=== PATIENT | male | born 1960 | race Caucasian/White ===

== ENCOUNTER → 2018-07-09 12:21 | Outpatient (CLI) | payer MEDICARE, SELFPAY ==
--- NOTE | 2018-07-09 12:46 | MR_ITS ---
MR lumbar spine wo/w con, MR 3-d myelogram/MRCP HISTORY: PT states spinal stenosis and low back pain X years. Gotten worse last month. Bilateral Hip pain and bilateral feet numbness. ITS.REASON: LBP RADIATING TO BOTH LEGS, DDD ORDERING PHYSICIAN: Arvin Pinedo MD PATIENT AGE: 57 years Comparison: MRI 10/19/14. X-RAY 10/13/14. TECHNIQUE: Standard multiplanar multiecho sequences are performed without contrast. 3-D MIP and myelographic images are also rendered and reviewed FINDINGS: There is normal alignment. Spinal cord ends at L1 level. T11-T12: Degenerative disc disease with mild bulging disc with mild bilateral lateral recess and foraminal narrowing. T12-L1: Unremarkable. L1-L2: Unremarkable. L2-L3: Degenerative disc disease with bulging disc. There is a small central disc herniation slightly eccentric toward the left causing mild indentation upon the thecal sac and mild impingement of the left L3 nerve root. This has developed since the previous exam. There is left lateral recess narrowing. There is facet and ligamentum flavum hypertrophy with bilateral lateral recess narrowing greater on the left along with bilateral foraminal narrowing also greater on the left. Type I endplate changes are present at this level posteriorly L3-L4: Degenerative disc disease with bulging disc along with endplate and facet and ligamentum flavum hypertrophy. There is moderate to severe bilateral foraminal narrowing greater on the left. The lateral recess narrowing is greater on the right. These findings are similar when compared to the previous exam. There are type II endplate changes L4-L5: Degenerative disc disease with bulging disc along with minimal central disc protrusion. There is mild left-sided foraminal narrowing. L5-S1: Severe degenerative disc disease with bulging disc and endplate hypertrophic change along with facet hypertrophy with moderate to severe bilateral foraminal narrowing. The disc bulge has improved compared to the previous exam. No bony canal stenosis. There are bilateral renal cysts. IMPRESSION: 1. Multilevel lumbar spondylosis with degenerative disc disease along with facet and ligamentum flavum hypertrophy and bulging disc with bilateral lateral recess and foraminal narrowing. Please see above for detailed description at each level. 2. L2-L3: Degenerative disc disease with bulging disc. There is a small central disc herniation slightly eccentric toward the left causing mild indentation upon the thecal sac and mild impingement of the left L3 nerve root. This has developed since the previous exam. There is left lateral recess narrowing. There is facet and ligamentum flavum hypertrophy with bilateral lateral recess narrowing greater on the left along with bilateral foraminal narrowing also greater on the left. Type I endplate changes are present at this level posteriorly 3. L3-L4: Degenerative disc disease with bulging disc along with endplate and facet and ligamentum flavum hypertrophy. There is moderate to severe bilateral foraminal narrowing greater on the left. The lateral recess narrowing is greater on the right. These findings are similar when compared to the previous exam. There are type II endplate changes
[2018-07-09 12:54] LABS: Blood Urea Nitrogen 14 mg/dL (7-18); Creatinine,Serum 0.95 mg/dL (0.70-1.30); Estimated Glomerular Filt Rate 81 ml/min (>60); GFR (African American) 99 ML/MIN (>60)
== END ==
PROVIDERS: Visit Provider Family Medicine
DX: M54.5 Low back pain (principal); M51.36 Other intervertebral disc degeneration, lumbar region; M99.83 Other biomechanical lesions of lumbar region; M48.00 Spinal stenosis, site unspecified
CPT/HCPCS: 36415; 72158; 76376; 82565; 84520; A9576

== ENCOUNTER 2019-07-27 13:30 | Emergency (ER) | payer MEDICARE, SELFPAY ==
--- NOTE | 2019-07-27 13:30 | ECG_ITS ---
APPROVED REPORT Exam: Resting ECG HR:78 bpm ECG Measurements Heart Rate 78 AXES MI 154 P 46 QRSd 96 QRS 71 QT 346 T 34 QTc 394 <Conclusion> Sinus rhythm with premature atrial complexes Incomplete right bundle branch block Borderline ECG Electronically signed by : Basim Billingsley, 07/28/2019 08:57:02
[2019-07-27 13:35] VITALS: BP 164/87; PULSE 79; RESP 20; TEMP 36.7; O2SAT 88; BMI 47.6
[2019-07-27 13:36] VITALS: BMI 47.6
--- NOTE | 2019-07-27 13:36 | XR_ITS ---
PROCEDURE: XR CHEST 2V CLINICAL HISTORY: chest pain Chest pain, cough, shortness of breath, smoker COMPARISON: ABDPELW/WO CT ABD PELVIS W/WO CONTRAST from 10/08/2014 FINDINGS: There is mild cardiomegaly without failure. There are atelectatic changes in the right lower lobe with eventration involving the right hemidiaphragm. Patchy density is present in the left lung base probably due to summation artifact and pericardial fat pad. Upper lobes are clear. No acute bony abnormalities. IMPRESSION: Right lower lobe atelectasis Dictated by: Gio Poole MD 07/27/2019 15:04 Electronically signed by Gio Poole MD in [place] 07/27/2019 15:04
[2019-07-27 13:59] LABS: Anion Gap 10.6 mEq/L (5-15); Blood Urea Nitrogen 17 mg/dl (9-20); Calcium 9.5 mg/dl (8.4-10.2); Carbon Dioxide 32 mmol/L (22.0-30.0); Chloride 94 mmol/L (98-107); Creatinine Clearance Estimated 90 mL/min (50-200); Estimated Glomerular Filt Rate 99 ml/min (>60); GFR (African American) 120 ML/MIN (>60); Glucose 116 mg/dl (74-100); Potassium 4.6 mmoL/L (3.5-5.1); Sodium 132 mmol/L (136-145)
[2019-07-27 14:00] LABS: Strep Scrn Group A (Rapid) Negative (Negative)
[2019-07-27 14:08] LABS: Basophils # 0.1 K/mm3 (0-0.2); Basophils % 0.9 % (0.1-2.0); Eosinophils % 0.5 % (0.1-12.0); Hematocrit 49.2 % (42.0-52.0); Lymphocytes % 22.6 % (10-50); Mean Corpuscular HGB Conc 32.5 g/dL (31.8-35.4); Mean Corpuscular Hemoglobin 31.9 pg (27.0-31.2); Mean Corpuscular Volume 98.2 fl (80-94); Mean Platelet Volume 7.8 fl (7.4-10.4); Monocytes # 0.8 K/mm3 (0.1-1.0); Platelet Count 284 K/mm3 (142-424); Red Blood Count 5.01 M/mm3 (4.60-6.20); White Blood Count 8.9 K/mm3 (4.8-10.8)
[2019-07-27 14:13] LABS: Troponin I < 0.01 ng/ml (0.00-0.034)
--- NOTE | 2019-07-27 14:19 | HMH.EDCP ---
ED Disposition Clinical Impression: Chest pain, Atypical chest pain, Costochondral chest pain Disposition: Home, Self-Care Condition on Discharge: Good Instructions: DI for Atypical Chest Pain Prescriptions: Nabumetone 750 mg PO 20 #10 tab Transmission Status: Pending to [facility][id number] Referrals: Arvin Pinedo MD [Primary Care Provider] - - Critical Care Critical Care Time: No Attestation: On 07/27/19, the high probability of a clinically significant, sudden or life threatening deterioration of the following system(s) required my full and direct attention, intervention and personal management. The time I documented below is in addition to time spent performing reported procedures but includes the following listed in this critical care notation. Medical Decision Making - Medical Records Medical records reviewed: Yes: I reviewed the patient's medical records. - Guillaume Inquiry Pt receiving controlled substance: No Vital Signs: 07/27/19 13:35 07/27/19 15:35 07/27/19 16:55 Temperature 98.0 F Temperature Source Oral Pulse Rate [Right Radial] 79 74 85 Respiratory Rate 20 24 20 Blood Pressure [Right Arm] 164/87 H 140/73 151/77 H Blood Pressure Mean [Right Arm] 112 95 101 Blood Pressure Source [Right Arm] Automatic Cuff Automatic Cuff Automatic Cuff Blood Pressure Position [Right Arm] Sitting Sitting Sitting 02 Sat by Pulse Oximetry 88 L 92 L 100 Oxygen Delivery Method Room Air Room Air Room Air - Lab Data Lab results reviewed: Yes: I reviewed the patient's lab results. Lab Results 07/27/19 13:40: WBC 8.9, RBC 5.01, Hgb 16.0, Hct 49.2, MCV 98.2 H, MCH 31.9 H, MCHC 32.5, RDW 13.0, Plt Count 284, MPV 7.8, Neut % (Auto) 67.0, Lymph % (Auto) 22.6, [place] % (Auto) 9.0, Eos % (Auto) 0.5, Baso % (Auto) 0.9, Neut # (Auto) 6.0, Lymph # (Auto) 2.0, [place] # (Auto) 0.8, Eos # (Auto) 0.0, Baso # (Auto) 0.1 07/27/19 13:40: Sodium 132 L, Potassium 4.6, Chloride 94 L, Carbon Dioxide 32 H, Anion Gap 10.6, BUN 17, Creatinine 0.80, Estimated Creat Clear 90, Estimated GFR 99, Est GFR ( Amer) 120, Glucose 116 H, Calcium 9.5, Troponin I < 0.01 07/27/19 13:45: Influenza Type A Ag Negative, Influenza Type B Ag Negative 07/27/19 13:45: Group A Strep Rapid Negative 07/27/19 16:49: Troponin I < 0.01 Result diagrams: 07/27/19 13:40 07/27/19 13:40 Orders (Tests/Meds): ED MEDICATIONS Discontinued Medications Generic Name Dose Route Start Last Admin Trade Name Adamq PRN Reason Stop Dose Admin Aspirin 324 mg 07/27/19 13:37 07/27/19 13:55 Aspirin 81mg Chewable Tablet PO 07/27/19 13:38 324 mg ONCE ONE Administration Methylprednisolone Sodium Succinate 125 mg 07/27/19 13:54 07/27/19 13:55 Solu-Medrol 125mg/2ml Vial IM 07/27/19 13:55 Not Given ONCE ONE Methylprednisolone Sodium Succinate 125 mg 07/27/19 13:56 07/27/19 13:56 Solu-Medrol 125mg/2ml Vial IV 07/27/19 13:57 125 mg ONCE ONE Administration ORDERS Category Date Time Status Troponin I Q3H Lab 07/27/19 19:45 Ordered Strep Screen Confirmation Stat Micro 07/27/19 13:45 Received - ECG Data Tracing #1 I reviewed this ECG and interpreted as documented below: Normal Sinus Rhythm: Yes Arrhythmias present: junctional escape rhythm Medical Decision Narrative: Patient second troponin drawn here in the emergency department is normal. I also spoke to Dr. Pinedo about this patient he recommended the patient follow-up with him in the office in the next week or so and to schedule an outpatient stress test. Chest Pain HPI - General Chief Complaint: Chest Pain Stated Complaint: chest pain Time Seen by Provider: 07/27/19 14:20 Mode of Arrival: Ambulatory Source of Information: Patient Limitations: No Limitations Description of Symptoms (Recalled from ER Triage Doc. by RN): pt c/o L sided cp since yesterday, pt reports loose cough, non-productive in nature, pt also c/o SOA that began upon waking up yesterday a
--- NOTE | 2019-07-27 14:53 | PC.NURSE ---
attempted to call dr means, no answer
--- NOTE | 2019-07-27 15:02 | PC.NURSE ---
dr clary jarquin
--- NOTE | 2019-07-27 15:15 | PC.NURSE ---
VIKY JAFFE spoke with Dr. Pinedo updating pt on POC at this time
[2019-07-27 15:35] VITALS: BP 140/73; PULSE 74; RESP 24; O2SAT 92
--- NOTE | 2019-07-27 16:50 | PC.NURSE ---
Lab at bedside. drawing 2nd troponin
[2019-07-27 16:55] VITALS: BP 151/77; PULSE 85; RESP 20; O2SAT 100
[2019-07-27 17:27] LABS: Troponin I < 0.01 ng/ml (0.00-0.034)
[2019-07-27 17:55] VITALS: BP 151/77; PULSE 85; RESP 20; TEMP 36.7; O2SAT 100
[2019-07-27 18:08] VITALS: BP 138/88; PULSE 72; RESP 16; TEMP 36.6; O2SAT 98
== END 2019-07-27 17:55 | disposition home or self-care (01) ==
PROVIDERS: Emergency Provider Family Medicine; PCP Family Medicine
DX: R07.89 Other chest pain (principal); R03.0 Elevated blood-pressure reading, without diagnosis of hypertension; R73.9 Hyperglycemia, unspecified; E66.9 Obesity, unspecified; Z68.42 Body mass index [BMI] 45.0-49.9, adult
CPT/HCPCS: 36415; 71046; 80048; 84484; 85025; 87275; 87276; 87430; 93005; 96374; 99283; 99284

== ENCOUNTER 2019-09-06 18:29 | Inpatient (IN) | payer MEDICARE, SELFPAY ==
[2019-09-06] VITALS (10 sets, daily range): BP systolic 97–124; BP diastolic 46–90; PULSE 81–94; RESP 14–19; TEMP 36.5–37; O2SAT 87–95; BMI 34.9; BMI 47.5
--- NOTE | 2019-09-06 18:43 | ECG_ITS ---
APPROVED REPORT Exam: Resting ECG HR:84 bpm ECG Measurements Heart Rate 84 AXES WI 182 P 73 QRSd 108 QRS 79 QT 342 T 45 QTc 404 <Conclusion> Normal sinus rhythm Low voltage QRS Incomplete right bundle branch block Borderline ECG Electronically signed by : Arvin Lehman, 09/09/2019 17:10:25
--- NOTE | 2019-09-06 18:43 | XR_ITS ---
PROCEDURE: XR CHEST PORTABLE CLINICAL HISTORY: weakness, both legs numb Weakness COMPARISON: XR CHEST 2V from 07/27/2019 CT CHEST WO CON from 09/06/2019 FINDINGS: Mild cardiomegaly with mild prominence of the mediastinum which may be in part due to the portable AP supine technique and mediastinal lipomatosis. There is slightly elevated right hemidiaphragm with lucency under the right hemidiaphragm possibly from undulation of the diaphragm and subdiaphragmatic adipose tissue.. The lungs are clear without infiltrates, suspicious nodules, or pleural effusions. No acute bony abnormalities. IMPRESSION: No definite acute finding. Mild cardiomegaly Dictated by: Gio Poole MD 09/06/2019 20:48 Electronically signed by Gio Poole MD in [place] 09/06/2019 20:48
--- NOTE | 2019-09-06 18:48 | CT_ITS ---
PROCEDURE: CT HEAD/BRAIN WO CON CLINICAL INDICATION: NUMBNESS TO LEGS Stroke protocol, generalized weakness and decreasing level of consciousness COMPARISON: No exams were available for comparison TECHNIQUE: Axial images obtained. All CT scans at the facility use one or more dose reduction, viz: automated exposure control, ma/kV adjustment per patient size (including targeted exams where dose is matched to indication, i.e. head), or iterative reconstruction technique. FINDINGS: No midline shift, mass effect, intracranial hemorrhage, hydrocephalus, or extra-axial fluid collection is evident. The calvarium has an unremarkable appearance. No mastoid effusion. No sinus air-fluid level. IMPRESSION: No acute intracranial finding Dictated by: Gio Poole MD 09/07/2019 10:39 Electronically signed by Gio Poole MD in [place] 09/07/2019 10:39
--- NOTE | 2019-09-06 18:52 | PC.NURSE ---
PT IS IN CT
[2019-09-06 18:56] LABS: Basophils % 0.1 % (0.1-2.0); Eosinophils # 0.1 K/mm3 (0.0-0.4); Eosinophils % 0.3 % (0.1-12.0); Hematocrit 49.9 % (42.0-52.0); Hemoglobin 16.3 g/dL (14.1-18.0); Lymphocytes # 1.2 K/mm3 (0.7-4.5); Lymphocytes % 5.5 % (10-50); Mean Corpuscular HGB Conc 32.6 g/dL (31.8-35.4); Mean Corpuscular Hemoglobin 33.2 pg (27.0-31.2); Mean Corpuscular Volume 101.7 fl (80-94); Mean Platelet Volume 8.2 fl (7.4-10.4); Monocytes # 1.5 K/mm3 (0.1-1.0); Monocytes % 7.2 % (1.7-9.3); Neutrophils # 18.2 K/mm3 (1.8-7.8); Neutrophils % 86.8 % (37.0-80.0); Platelet Count 307 K/mm3 (142-424); Red Blood Count 4.91 M/mm3 (4.60-6.20); Red Cell Distribution Width 13.3 % (11.5-17.5)
[2019-09-06 18:59] LABS: White Blood Count 20.9 K/mm3 (4.8-10.8)
[2019-09-06 19:01] LABS: MANUAL DIFFERENTIAL MANUAL DIFFERENTIAL (MANUAL DIFF)
[2019-09-06 19:03] LABS: Blood Urea Nitrogen 51 mg/dl (9-20); Calcium 9.3 mg/dl (8.4-10.2); Carbon Dioxide 24 mmol/L (22.0-30.0); Chloride 93 mmol/L (98-107); Creatinine Clearance Estimated 36 mL/min (50-200); Estimated Glomerular Filt Rate 19 ml/min (>60); GFR (African American) 23 ML/MIN (>60); Glucose 165 mg/dl (74-100); Sodium 134 mmol/L (136-145)
[2019-09-06 19:06] LABS: Lymphocytes % 7 % (10-50); Monocytes % 3 % (2-9); Neutrophils % 84 % (42-76); Platelet Estimate Normal; Total Cells Counted 100
--- NOTE | 2019-09-06 19:06 | PC.NURSE ---
vrad calling about pt ct scan
[2019-09-06 19:07] LABS: Macrocytosis 1+
[2019-09-06 19:13] LABS: Lactic Acid 4.1 mmol/L (0.7-2.1)
--- NOTE | 2019-09-06 19:14 | CT_ITS ---
PROCEDURE: CT CHEST WO CON CLINICAL INDICATION: weakness Shortness of breath, severe shortness of breath COMPARISON: CT ABDOMEN PELVIS WO CON from 09/06/2019 TECHNIQUE: Axial images obtained with sagittal and coronal reformats. All CT scans at the facility use one or more dose reduction, viz: automated exposure control, ma/kV adjustment per patient size (including targeted exams where dose is matched to indication, i.e. head), or iterative reconstruction technique. FINDINGS: HEART AND MEDIASTINAL STRUCTURES: Coronary artery calcifications. Mediastinal lipomatosis. No mediastinal or hilar mass or adenopathy LUNGS AND PLEURAL SPACES: Atelectatic changes are present involving the lower lobes posteriorly. There are scattered calcified granulomas. 7 mm right infrahilar nodule in the right lower lobe image 42 BONY STRUCTURES: No acute bony abnormalities apparent. UPPER ABDOMEN: There is a small hypodensity in the right hepatic lobe laterally image 71 measuring approximately 8 mm nonspecific ADDITIONAL FINDINGS: There is some subcutaneous increased density in the presternal region nonspecific. IMPRESSION: 1. Coronary artery calcification. 2. Atelectatic changes in the lower lobes 3. Noncalcified rib 7 mm right lower lobe pulmonary nodule. Consider six-month follow-up Dictated by: Gio Poole MD 09/07/2019 10:49 Electronically signed by Gio Poole MD in [place] 09/07/2019 10:49
--- NOTE | 2019-09-06 19:14 | CT_ITS ---
PROCEDURE: CT ABDOMEN PELVIS WO CON CLINICAL INDICATION: weakness Generalized abdominal pain with numbness in the legs COMPARISON: ABDPELW/WO CT ABD PELVIS W/WO CONTRAST from 10/08/2014 TECHNIQUE: Axial images obtained with sagittal and coronal reformats. All CT scans at the facility use one or more dose reduction, viz: automated exposure control, ma/kV adjustment per patient size (including targeted exams where dose is matched to indication, i.e. head), or iterative reconstruction technique. FINDINGS: LOWER THORAX: There are coronary artery calcifications present. Atelectatic changes are present in the lung bases. ABDOMEN & PELVIS: There is a small hypodensity in the right hepatic lobe laterally at 10 mm nonspecific and may be due to small hepatic cyst not significantly changed. The spleen, adrenal glands, and kidneys have an unremarkable unenhanced appearance, aside from small bilateral renal cysts. No radiopaque gallstones. There are few punctate calcifications in the pancreas which could be vascular or parenchymal. There is protrusion of the right lateral abdominal wall laterally with part of the right abdomen is cut off on the images due to patient's body size and patient positioning. Part of the colon is nonvisualized. No intestinal obstruction or free air. No evidence appendicitis or diverticulitis. There is colonic diverticulosis of the descending and sigmoid colon. Coarse calcifications are present in the prostate. There are postsurgical changes of the lumbar spine from L1-S1 with inter pedicular screws and connecting rods. IMPRESSION: 1. No acute findings. 2. Chronic right lateral abdominal wall protrusion with incomplete imaging of the right aspect of the abdomen 3. Colonic diverticulosis without diverticulitis Dictated by: Gio Poole MD 09/07/2019 11:29 Electronically signed by Gio Poole MD in [place] 09/07/2019 11:29
[2019-09-06 19:15] LABS: Troponin I 0.16 ng/ml (0.00-0.034)
[2019-09-06 19:16] LABS: Anion Gap 24.6 mEq/L (5-15); Potassium 7.6 mmoL/L (3.5-5.1)
--- NOTE | 2019-09-06 19:34 | HMH.EDWEAK ---
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 Renal failure Qualifiers: Renal failure chronicity: acute Acute renal failure type: unspecified Qualified Code(s): N17.9 - Acute kidney failure, unspecified COPD (chronic obstructive pulmonary disease) Qualifiers: COPD type: COPD with acute exacerbation Qualified Code(s): J44.1 - Chronic obstructive pulmonary disease with (acute) exacerbation Disposition: Admitted As Inpatient Condition on Discharge: Fair Referrals: Arvin Pinedo MD [Primary Care Provider] - Time of Disposition: 20:47 - Critical Care Critical Care Time: Yes Attestation: On 09/06/19, the high probability of a clinically significant, sudden or life threatening deterioration of the following system(s) required my full and direct attention, intervention and personal management. The time I documented below is in addition to time spent performing reported procedures but includes the following listed in this critical care notation. Vital system(s) involved:: Circulatory Failure, Respiratory Failure, Renal Failure My critical care processes included: Assessment & monitoring of V/S, Coordinating Care, Medication Orders and management Medical Decision Making - Guillaume Inquiry Pt receiving controlled substance: No Vital Signs: 09/06/19 18:35 09/06/19 19:11 09/06/19 19:32 Temperature 97.7 F Temperature Source Oral Pulse Rate [Left Radial] 88 85 84 Respiratory Rate 18 18 14 Blood Pressure [Right Arm] 97/58 L 111/66 98/55 L Blood Pressure Mean [Right Arm] 71 81 69 Blood Pressure Source [Right Arm] Automatic Cuff Automatic Cuff Blood Pressure Position [Right Arm] Sitting Sitting Sitting 02 Sat by Pulse Oximetry 87 L 93 L 90 L Oxygen Delivery Method Room Air Nasal Cannula Nasal Cannula Oxygen Flow Rate (LPM) 4 4 09/06/19 20:00 09/06/19 20:30 Temperature Temperature Source Pulse Rate [Left Radial] 84 92 H Respiratory Rate 18 16 Blood Pressure [Right Arm] 113/66 106/68 L Blood Pressure Mean [Right Arm] 81 80 Blood Pressure Source [Right Arm] Automatic Cuff Automatic Cuff Blood Pressure Position [Right Arm] Supine Supine 02 Sat by Pulse Oximetry 91 L 93 L Oxygen Delivery Method Nasal Cannula Nasal Cannula Oxygen Flow Rate (LPM) 5 5 - Lab Data Lab Results 09/06/19 18:36: WBC 20.9 H*, RBC 4.91, Hgb 16.3, Hct 49.9, MCV 101.7 H, MCH 33.2 H, MCHC 32.6, RDW 13.3, Plt Count 307, MPV 8.2, Neut % (Auto) 86.8 H, Lymph % (Auto) 5.5 L, [place] % (Auto) 7.2, Eos % (Auto) 0.3, Baso % (Auto) 0.1, Neut # (Auto) 18.2 H, Lymph # (Auto) 1.2, [place] # (Auto) 1.5 H, Eos # (Auto) 0.1, Baso # (Auto) 0.0, Total Counted 100, Neutrophils % (Manual) 84 H, Band Neutrophils % 6.0, Lymphocytes % (Manual) 7 L, Monocytes % (Manual) 3, Platelet Estimate Normal, Macrocytosis 1+ 09/06/19 18:36: Sodium 134 L, Potassium 7.6 H*, Chloride 93 L, Carbon Dioxide 24, Anion Gap 24.6 H, BUN 51 H, Creatinine 3.30 H, Estimated Creat Clear 36, Estimated GFR 19 L*, Est GFR ( Amer) 23 L, Glucose 165 H, Calcium 9.3, Troponin I 0.16 H 09/06/19 18:36: Lactate 4.1 H Result diagrams: 09/06/19 18:36 09/06/19 18:36 Orders (Tests/Meds): ED MEDICATIONS Generic Name Dose Route Start Last Admin Trade Name Freq PRN Reason Stop Dose Admin Sodium Chloride 1,000 mls @ 999 mls/hr 09/06/19 18:45 09/06/19 18:47 Sod Chlor 0.9% 1000ml Bag IV 09/06/19 19:45 999 mls/hr .Q1H1M
--- NOTE | 2019-09-06 20:36 | PC.NURSE ---
on phone with dr. lyle at this time
[2019-09-06 20:51] LABS: Coronavirus 19 IgG Antibody Negative (Negative); Coronavirus 19 IgM Antibody Negative (Negative)
[2019-09-06 21:11] LABS: Adenovirus,PCR Not Detected (NotDetected); Bordetella Pertussis Not Detected (NotDetected); Chlamydophila Pneumoniae, PCR Not Detected (NotDetected); Coronavirus 19, PCR Not Detected (NotDetected); Coronavirus 229E Not Detected (NotDetected); Coronavirus NL63 Not Detected (NotDetected); Coronavirus OC43 Not Detected (NotDetected); Coronovirus HKU1,PCR Not Detected (NotDetected); Human Metapneumovirus Not Detected (NotDetected); Influenza A, PCR Not Detected (NotDetected); Influenza AH1, 2009 Not Detected (NotDetected); Influenza AH1, PCR Not Detected (NotDetected); Influenza AH3,PCR Not Detected (NotDetected); Influenza B, PCR Not Detected (NotDetected); Mycoplasma Pneumoniae, PCR Not Detected (NotDected); Parainfluenza 1, PCR Not Detected (NotDetected); Parainfluenza 2, PCR Not Detected (NotDetected); Parainfluenza 3, PCR Not Detected (NotDetected); Parainfluenza 4, PCR Not Detected (NotDetected); Respiratory Syncytial Virus Not Detected (NotDetected); Rhinovirus/Enterovirus Not Detected (NotDetected)
[2019-09-06 22:03] LABS: Reflex Lactic Add Lactic Reflex
[2019-09-06 22:22] LABS: Lactic Acid Follow Up (RFLX 1) 1.2 mmol/L (0.7-2.1)
[2019-09-06 22:36] LABS: Troponin I 0.27 ng/ml (0.00-0.034)
--- NOTE | 2019-09-06 23:38 | PC.NURSE ---
PT ARRIVED TO THE FLOOR VIA STRETCHER FROM ED@ [phone].
[2019-09-07] VITALS (7 sets, daily range): BP systolic 117–165; BP diastolic 62–82; PULSE 61–105; RESP 16–20; TEMP 36.6–37.2; O2SAT 2–98; BMI 47.9; BMI 47.8
--- NOTE | 2019-09-07 03:35 | PC.NURSE ---
Pt med rec incomplete. Pt is not sure what medications he takes. Family is able to bring medication in the AM to verify. Medication list pulled from external med source. Will pass on in report to oncoming RN.
--- NOTE | 2019-09-07 04:59 | PC.NURSE ---
Addendum entered by Chun Lira RN 09/07/19 05:32: Pt still has twitching in extremities as of 532. IS best of 1000 this shift. Original Note: Pt new admit this shift d/t Sepsis, PNA, ARF, and COPD exacerbation. A&Ox4, does have some periods of confusion at times but is easily reorientated. Pt states I can't feel my legs although is able to move his legs and feel me touching his feet when assessed. Mild weakness and pitting edema to BLE. Extremities are cool to touch. BP improving throughout shift and remains afebrile. No other complaints reported to staff. Pt is able to reposition himself in bed and is using urinal independently, voiding clear pale urine. O2 has been weaned down to 2LNC and pt is tolerating well. Expiratory rhochi and wheezing upon auscultation. TEDS in place. Pt educated on IS use and demonstrates understanding. NS infusing per MAR. Pt received basin bath this shift. 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 Bed alarm in place for pt safety and electrode added to call light for tactile feedback. Will continue to monitor.
[2019-09-07 05:42] LABS: POC Glucose,Bedside 138 (70-110)
[2019-09-07 06:40] LABS: Basophils % 0.2 % (0.1-2.0); Eosinophils % 0.1 % (0.1-12.0); Lymphocytes # 1.6 K/mm3 (0.7-4.5); Lymphocytes % 8.2 % (10-50); Mean Corpuscular Hemoglobin 33.1 pg (27.0-31.2); Mean Corpuscular Volume 103.5 fl (80-94); Mean Platelet Volume 8.6 fl (7.4-10.4); Monocytes # 1.6 K/mm3 (0.1-1.0); Monocytes % 8.1 % (1.7-9.3); Neutrophils # 15.9 K/mm3 (1.8-7.8); Neutrophils % 83.4 % (37.0-80.0); Platelet Count 233 K/mm3 (142-424); Red Blood Count 4.54 M/mm3 (4.60-6.20); Red Cell Distribution Width 13.3 % (11.5-17.5)
[2019-09-07 06:46] LABS: MANUAL DIFFERENTIAL MANUAL DIFFERENTIAL (MANUAL DIFF)
[2019-09-07 06:53] LABS: Chloride 106 mmol/L (98-107)
[2019-09-07 06:54] LABS: Lactic Acid 0.9 mmol/L (0.7-2.1); Sodium 135 mmol/L (136-145)
[2019-09-07 06:56] LABS: Alanine Aminotransferase 63 U/L (12-78); Albumin Level 3.7 g/dl (3.5-5.0); Albumin/Globulin Ratio 1.4 (1.1-1.8); Alkaline Phosphatase 74 U/L (38-126); Anion Gap 10.1 mEq/L (5-15); Aspartate Amino Transferase 267 U/L (17-59); Bilirubin,Total 0.3 mg/dl (0.2-1.3); Blood Urea Nitrogen 41 mg/dl (9-20); Carbon Dioxide 25 mmol/L (22.0-30.0); Creatinine Clearance Estimated 38 mL/min (50-200); Estimated Glomerular Filt Rate 36 ml/min (>60); GFR (African American) 44 ML/MIN (>60); Globulin 2.6 g/dL (1.3-3.2); Total Protein,Serum 6.3 g/dl (6.3-8.2)
[2019-09-07 06:57] LABS: Glucose 147 mg/dl (74-100); Magnesium 2.5 mg/dl (1.6-2.3)
[2019-09-07 07:38] LABS: Calcium 7.6 mg/dl (8.4-10.2)
[2019-09-07 07:39] LABS: Potassium 6.1 mmoL/L (3.5-5.1)
--- NOTE | 2019-09-07 07:43 | PC.NURSE ---
Addendum entered by Mayra Smith RN 09/07/19 07:45: This RN was notified via phone by medical lab director Tracee of critical potassium at 0740. was then immediately notified of critical results. Original Note: notified Dr Pinedo of critical potassium at approx 0741. k+ 6.1 no new orders at this time.
--- NOTE | 2019-09-07 07:47 | HMH.PHAVTE ---
[facility] Pharmacy VTE Monitoring - Patient Demographics Admission date: 09/06/19 Report Date: 09/07/19 Time: 07:47 Allergies/Adverse Reactions: Patient Allergies No Known Allergies Allergy (Unverified 03/12/17 14:22) Height: 1.68 m Weight: 135.227 kg Patient Problems: Current Active Problems Pneumonia (Acute) Sepsis (Acute) Renal failure (Acute) COPD (chronic obstructive pulmonary disease) (Acute) - VTE Risk Labs: VTE Related Lab Results Hgb 15.0 g/dL (14.1-18.0) 09/07/19 06:22 Hct 47.0 % (42.0-52.0) 09/07/19 06:22 Plt Count 233 K/mm3 (142-424) 09/07/19 06:22 BUN 41 mg/dl (9-20) H 09/07/19 06:22 Creatinine 1.90 mg/dl (0.66-1.25) H D 09/07/19 06:22 Estimated Creat Clear 38 mL/min (50-200) 09/07/19 06:22 Was VTE Risk Assessment Performed: Yes VTE Score: 6 VTE Risk Level: Moderate Risk - Prophylaxis VTE Prophylaxis Ordered?: Yes Types of VTE Prophylaxis: TEDS Knee High Location of Applied Device: Bilateral Lower Extremeties - VTE Diagnosis Confirmed Treatment or plan recommended: Continue Current Treatment
[2019-09-07 07:49] LABS: Lymphocytes % 4 % (10-50); Monocytes % 6 % (2-9); Neutrophils % 90 % (42-76); Platelet Estimate Normal; Total Cells Counted 100
[2019-09-07 07:50] LABS: Anisocytosis 1+; Macrocytosis 1+
--- NOTE | 2019-09-07 07:56 | HMH.HP ---
*Admission Date: 09/06/19 *Chief complaint: Confusion *History of present illness: 58-year-old male with diabetes, hypertension, severe COPD presented to the emergency department after he contacted his son because he felt weak and ill at home. Patient had had a normal Saturday and had even attended a family get together. On Saturday he became so weak he could not ambulate on his own and was crawling around his house. He does not really recall specifics of the day. He felt so ill he contacted his son. His son came to his house and saw the shape his father was in and called EMS and patient was brought to the emergency department. In the ER patient was diagnosed as septic with source of infection being pneumonia found on chest CT. Patient was negative for COVID 19. He was admitted for IV fluids, IV antibiotics. Patient has COPD but denies any significant shortness of breath above baseline or cough with purulent sputum production. He is unaware if he has had fevers at home. [facility] History I have reviewed the patient's past medical history: Yes Medical History: Reports:: Chronic Obstructive Pulmonary Disease (COPD), Diabetes Mellitus Type 2, Hyperlipidemia, Hypertension Denies:: Cancer, Diabetes Mellitus Type 1, MRSA *Have you ever received a pneumonia vaccine?: Yes *Have you received a flu vaccine this season?: Yes Laterality Cases: Bilateral: Other Other Surgeries: Yes: Other (laser eye sx) Amputation: No Fractures: No - *Social History Educational Level: Attended College Smoking Status: Current every day smoker Tobacco Type: cigarettes # Packs/Day (cigarettes): 2 Alcohol Intake: never Substance Use Type: former substance user, marijuana, heroin, painkillers Last Used Substance: days (ago) *Occupational Status:: disabled Housing: apartment Household Members: none *Travel in the last 8 weeks: None Family Hx:: No significant family history Review of Systems - Eyes Reports loss of vision - *Cardiovascular Denies chest pain, Denies chest pain at rest - *Respiratory Denies chest congestion, Denies cough, Denies shortness of breath - *Gastrointestinal Denies abdominal pain - *Genitourinary Denies difficulty urinating - *Musculoskeletal Reports abnormal walking - *Neurologic Reports abnormal walking, Reports confusion, Reports loss of vision, Reports numbness, Reports sensory deficit (Diabetic neuropathy), Reports weakness, Denies dizziness, Denies headache(s), Denies tingling Meds Home Medications Medication Instructions Recorded Confirmed Type Amlodipine Besylate [Amlodipine 5 mg PO DAILY 09/07/19 09/07/19 History 5mg tab] Atorvastatin Calcium [Atorvastatin 10 mg PO HS 09/07/19 09/07/19 History 10mg Tab] Fluticasone/Umeclidin/Vilanter 1 each IH DAILY 09/07/19 09/07/19 History [Trelegy Ellipta 100-62.5-25] Gabapentin 600 mg PO DAILY 09/07/19 09/07/19 History Glimepiride 2 mg PO DAILY 09/07/19 09/07/19 History Metformin HCl [Fortamet] 500 mg PO DAILY 09/07/19 09/07/19 History Pioglitazone HCl 30 mg PO DAILY 09/07/19 09/07/19 History Trazodone HCl 50 mg PO NEEDED PRN 09/07/19 09/07/19 History Umeclidinium Brm/Vilanterol Tr 1 inh IH DAILY 09/07/19 09/07/19 History [Anoro Ellipta 62.5-25 Mcg INH] lisinopriL [Lisinopril 40mg Tablet] 40 mg PO DAILY 09/07/19 09/07/19 History Allergies Allergy/AdvReac Type Severity Reaction Status Date / Time No Known Allergies Allergy Unverified 03/12/17 14:22 Exam Vital signs and Labs for Last 24 Hours: Temp Pulse Resp BP Pulse Ox 97.9 F 93 H 17 141/74 H 91 L 09/07/19 04:00 09/07/19 04:00 09/07/19 04:00 09/07/19 04:00 09/07/19 05:35 Laboratory Results - last 24 hr 09/06/19 18:36: WBC 20.9 H*, RBC 4.91, Hgb 16.3, Hct 49.9, MCV 101.7 H, MCH 33.2 H, MCHC 32.6, RDW 13.3, Plt Count 307, MPV 8.2, Neut % (Auto) 86.8 H, Lymph % (Auto) 5.5 L, [place] % (Auto) 7.2, Eos % (Auto) 0.3, Baso % (Auto) 0.1, Neut # (Auto) 18.2 H, Lymph # (Auto) 1.2, [place] #
--- NOTE | 2019-09-07 09:00 | HMH.PHAINT ---
CLARIFIED HOME MEDICATION HOME LIST WITH DR RANDHAWA' OFFICE AND [facility]
--- NOTE | 2019-09-07 11:34 | PC.NURSE ---
Pt requesting Gabapentin to be restarted as this is a home medication. Called Dr. Pinedo' office. His nurse relays that Dr. Pinedo is aware and will restart Gabapenting. Updated pt.
[2019-09-07 18:11] LABS: Adenovirus F 40/41, stool Not Detected (NotDetected); Astrovirus Not Detected (NotDetected); Campylobacter Not Detected (NotDetected); Clostridium Difficile A/B, PCR Not Detected (NotDetected); Cryptosporidium Not Detected (NotDetected); Cyclospora Cayetanesis Not Detected (NotDetected); Entamoeba histolytica Not Detected (NotDetected); Enteroaggregative E coli Not Detected (NotDetected); Enteropathogenic E coli Not Detected (NotDetected); Enterotoxigenic E coli Not Detected (NotDetected); Giardia lamblia Not Detected (NotDetected); Norovirus Not Detected (NotDetected); Plesimonas Shigalloides, PCR Not Detected (NotDetected); Rotavirus A Not Detected (NotDetected); Salmonella, PCR Not Detected (NotDetected); Sapovirus Not Detected (NotDetected); Shiga-like toxin E coli Not Detected (NotDetected); Shigella Enterovasive E coli Not Detected (NotDetected); Vibrio Cholerae Not Detected (NotDetected); Vibrio, PCR Not Detected (NotDetected); Yersinia Entercolitica, PCR Not Detected (NotDetected)
[2019-09-07 18:15] LABS: POC Glucose,Bedside 204 (70-110)
--- NOTE | 2019-09-07 18:35 | PC.NURSE ---
Pt has had 5 episodes of diarrhea this shift. Sent stool specimen to lab. BLE numb to touch and cool from knees to toes. Bilateral lungs with ronchii and wheezing. Has not been OOB this shift. Is tolerating a diabetic diet. Gabapentin 1200mg TID restarted today per Dr. Pinedo.
--- NOTE | 2019-09-07 19:09 | PC.NURSE ---
report given to lara
--- NOTE | 2019-09-07 20:27 | PC.NURSE ---
Pt's room air sat at rest = 90%.
[2019-09-07 22:18] LABS: POC Glucose,Bedside 117 (70-110)
--- NOTE | 2019-09-07 23:37 | PC.NURSE ---
placed pt in contact precautions for lab notification of positive blood cultures. staph with meca detected. will notify
[2019-09-08] VITALS (9 sets, daily range): BP systolic 128–153; BP diastolic 67–84; PULSE 78–100; RESP 16–22; TEMP 36.4–37.1; O2SAT 90–96; BMI 47.2
[2019-09-08 00:50] LABS: POC Glucose,Bedside 141 (70-110)
--- NOTE | 2019-09-08 04:00 | PC.NURSE ---
Addendum entered by Rakel Cabrales RN 09/08/19 05:27: +2 PULSE NOTED IN RIGHT FOOT UPON PALPATION. +1 WEAK PULSE NOTED IN LEFT FOOT UPON PALPATION. PT ABLE TO FOLLOW COMMANDS AND WIGGLE TOES. Original Note: A&O X4. PT TOLERATED 2LNC WELL THIS SHIFT WITH NO C/O SOA. BILATERAL LUNG SOUNDS NOTED WITH EXPIRATORY RHONCHI UPON AUSCULTATION. RR NOTED EVEN AND UNLABORED. PT NOTED WITH INTERMITTENT PRODUCTIVE COUGH. ENCOURAGED USE OF INCENTIVE SPIROMETER THIS SHIFT Q1H WHILE AWAKE. PT DEMONSTRATED APPROPRIATE USE OF IS TO THIS RN. NSR/SINUS ARRHYTHMIA NOTED ON REPAIRER ART OBJECTS THIS SHIFT THUS FAR. BILAT TEDS ON. ADEQUATE URINE OUTPUT NOTED THIS SHIFT, INDEPENDENT USE OF URINAL. REMAINS INCONTINENT OF STOOL THIS SHIFT. VSS. REMAINS SAFE. CALL LIGHT WITHIN REACH. WILL CONTINUE TO MONITOR.
[2019-09-08 05:15] LABS: POC Glucose,Bedside 136 (70-110)
[2019-09-08 06:56] LABS: Basophils % 0.2 % (0.1-2.0); Eosinophils # 0.1 K/mm3 (0.0-0.4); Eosinophils % 0.4 % (0.1-12.0); Hematocrit 44.8 % (42.0-52.0); Hemoglobin 14.9 g/dL (14.1-18.0); Lymphocytes # 1.9 K/mm3 (0.7-4.5); Lymphocytes % 15.3 % (10-50); Mean Corpuscular HGB Conc 33.3 g/dL (31.8-35.4); Mean Corpuscular Hemoglobin 33.7 pg (27.0-31.2); Mean Corpuscular Volume 101.2 fl (80-94); Mean Platelet Volume 8.3 fl (7.4-10.4); Monocytes # 1.1 K/mm3 (0.1-1.0); Neutrophils # 9.4 K/mm3 (1.8-7.8); Neutrophils % 75.1 % (37.0-80.0); Platelet Count 215 K/mm3 (142-424); Red Blood Count 4.43 M/mm3 (4.60-6.20); Red Cell Distribution Width 13.5 % (11.5-17.5); White Blood Count 12.5 K/mm3 (4.8-10.8)
[2019-09-08 07:36] LABS: Chloride 106 mmol/L (98-107); Potassium 4.9 mmoL/L (3.5-5.1); Sodium 137 mmol/L (136-145)
--- NOTE | 2019-09-08 07:38 | HMH.ACPN2 ---
Internal Medicine - PN: Subj *Date: 09/08/19 *Time: 07:38 Interval history: Patient has no new complaints this morning. His biggest concern is the change in sensation on the bottoms of his feet. Patient has diabetic neuropathy but since he became more coherent during this hospitalization he reports his feet feel like water jogs when he is trying to walk. He is able to move his legs without problems. His sensation is intact but the bottom of his feet do not have the sensation they did prior to hospitalization. I have tried to reassure the patient I believe this is due to his electrolyte imbalances and level of illness. Otherwise regarding his pneumonia he continues to have a productive cough but denies any significant shortness of breath. Blood cultures are growing a staph species in sputum culture right now shows 2 possible organisms Exam Vital signs and Labs for Last 24 Hours: Temp Pulse Resp BP Pulse Ox 98.2 F 99 H 18 153/67 H 90 L 09/08/19 07:33 09/08/19 07:33 09/08/19 07:33 09/08/19 07:33 09/08/19 07:33 Laboratory Results - last 24 hr 09/07/19 06:22: Total Counted 100, Neutrophils % (Manual) 90 H, Lymphocytes % (Manual) 4 L, Monocytes % (Manual) 6, Platelet Estimate Normal, Anisocytosis 1+, Macrocytosis 1+ 09/07/19 06:22: Sodium 135 L, Potassium 6.1 H*, Chloride 106, Carbon Dioxide 25, Anion Gap 10.1, BUN 41 H, Creatinine 1.90 H D, Estimated Creat Clear 38, Estimated GFR 36 L, Est GFR ( Amer) 44 L D, Glucose 147 H, Calcium 7.6 L D, Phosphorus 5.0 H, Magnesium 2.5 H, Total Bilirubin 0.3, AST 267 H, ALT 63, Alkaline Phosphatase 74, Total Protein 6.3, Albumin 3.7, Globulin 2.6, Albumin/Globulin Ratio 1.4 09/07/19 11:22: POC Glucose 141 H 09/07/19 17:50: Stl Aeromonas (PCR) Not detected, Stl C. cayetanensis PCR Not detected, Stool Rotavirus (PCR) Not detected, Stl Adenov F 40/41 PCR Not detected, Stool Astrovirus (PCR) Not detected, Stool Campylobacter PCR Not detected, Stl C.difficile Tox PCR Not detected, Stool Cryptosporidium PCR Not detected, Stl E.coli Shiga Tox PCR Not detected, Stool E coli O157 PCR Not detected, Stl Enterotoxigenic E PCR Not detected, Stool EPEC (PCR) Not detected, Stool EAEC (PCR) Not detected, Stl E. histolytica PCR Not detected, Stool Giardia Lamblia PCR Not detected, Stool Salmonella PCR Not detected, Stool Sapovirus (PCR) Not detected, Stl P. shigelloides PCR Not detected, Stl Shigella/EIEC PCR Not detected, St Y.enterocolitica PCR Not detected, Stool Vibrio (PCR) Not detected, Stl Vibrio cholerae PCR Not detected, Stl Norovirus GI/GII PCR Not detected 09/07/19 18:07: POC Glucose 204 H 09/07/19 22:09: POC Glucose 117 H 09/08/19 05:05: POC Glucose 136 H 09/08/19 06:35: WBC 12.5 H D, RBC 4.43 L, Hgb 14.9, Hct 44.8, MCV 101.2 H, MCH 33.7 H, MCHC 33.3, RDW 13.5, Plt Count 215, MPV 8.3, Neut % (Auto) 75.1, Lymph % (Auto) 15.3, [place] % (Auto) 9.0, Eos % (Auto) 0.4, Baso % (Auto) 0.2, Neut # (Auto) 9.4 H, Lymph # (Auto) 1.9, [place] # (Auto) 1.1 H, Eos # (Auto) 0.1, Baso # (Auto) 0.0 I & O for Last 24 hours: Intake & Output 09/05/19 09/06/19 09/07/19 09/08/19 11:59 11:59 11:59 11:59 Intake Total 4652 / 4652 6303 / 6303 Output Total 1276 / 1276 5275 / 5275 Balance 3376 / 3376 1028 / 1028 Weight 298 lb 2 oz 294 lb 2 oz Microbiology Reports for the Last 24 Hours: Microbiology 09/06/19 18:36 Blood Blood Culture - Preliminary 09/07/19 06:48 Sputum - Expectorated Sputum Gram Stain - Final Narrative: Patient does not appear to be in any distress. Lungs have diffuse rhonchi throughout but more significant in the bases bilaterally. Heart has a regular rate and rhythm. Abdomen is obese. Sensation is intact in the lower extremities. Patient has active range of motion in the toes, ankles, knees Assessment and Plan (1) Pneumonia Current visit: Yes Status: Acute Qualifiers: Pneumonia type: due to unspecified organism Laterality: bilateral Lung location: unspec
[2019-09-08 07:39] LABS: Anion Gap 9.9 mEq/L (5-15); Blood Urea Nitrogen 21 mg/dl (9-20); Calcium 8.1 mg/dl (8.4-10.2); Carbon Dioxide 26 mmol/L (22.0-30.0); Creatinine Clearance Estimated 72 mL/min (50-200); Estimated Glomerular Filt Rate 76 ml/min (>60); GFR (African American) 93 ML/MIN (>60); Glucose 150 mg/dl (74-100)
--- NOTE | 2019-09-08 08:20 | HMH.PHACONS ---
- Pharmacy Consult Date: 09/08/19 Time: 08:21 Referring provider: DR. RANDHAWA Reason for Consult:: VANCOMYCIN DOSING Allergies and ADEs:: Allergies Allergy/AdvReac Type Severity Reaction Status Date / Time No Known Allergies Allergy Unverified 03/12/17 14:22 Home Medications:: Home Medications Medication Instructions Recorded Confirmed Type Amlodipine Besylate [Amlodipine 5 mg PO DAILY 09/07/19 09/07/19 History 5mg tab] Atorvastatin Calcium [Atorvastatin 10 mg PO HS 09/07/19 09/07/19 History 10mg Tab] Fluticasone/Umeclidin/Vilanter 1 each IH DAILY 09/07/19 09/07/19 History [Trelegy Ellipta 100-62.5-25] Gabapentin 1,200 mg PO TID 09/07/19 09/07/19 History Glimepiride 4 mg PO DAILY 09/07/19 09/07/19 History Metformin HCl [Fortamet] 500 mg PO DAILY 09/07/19 09/07/19 History Pioglitazone HCl 30 mg PO DAILY 09/07/19 09/07/19 History Trazodone HCl 50 mg PO HS PRN 09/07/19 09/07/19 History Venlafaxine HCl [Venlafaxine HCl 150 mg PO DAILY 09/07/19 09/07/19 History ER] lisinopriL [Lisinopril 40mg Tablet] 40 mg PO DAILY 09/07/19 09/07/19 History Height: 1.68 m Weight: 133.413 kg Laboratory Results:: Laboratory Results - last 24 hr 09/07/19 11:22: POC Glucose 141 H 09/07/19 17:50: Stl Aeromonas (PCR) Not detected, Stl C. cayetanensis PCR Not detected, Stool Rotavirus (PCR) Not detected, Stl Adenov F 40/41 PCR Not detected, Stool Astrovirus (PCR) Not detected, Stool Campylobacter PCR Not detected, Stl C.difficile Tox PCR Not detected, Stool Cryptosporidium PCR Not detected, Stl E.coli Shiga Tox PCR Not detected, Stool E coli O157 PCR Not detected, Stl Enterotoxigenic E PCR Not detected, Stool EPEC (PCR) Not detected, Stool EAEC (PCR) Not detected, Stl E. histolytica PCR Not detected, Stool Giardia Lamblia PCR Not detected, Stool Salmonella PCR Not detected, Stool Sapovirus (PCR) Not detected, Stl P. shigelloides PCR Not detected, Stl Shigella/EIEC PCR Not detected, St Y.enterocolitica PCR Not detected, Stool Vibrio (PCR) Not detected, Stl Vibrio cholerae PCR Not detected, Stl Norovirus GI/GII PCR Not detected 09/07/19 18:07: POC Glucose 204 H 09/07/19 22:09: POC Glucose 117 H 09/08/19 05:05: POC Glucose 136 H 09/08/19 06:35: WBC 12.5 H D, RBC 4.43 L, Hgb 14.9, Hct 44.8, MCV 101.2 H, MCH 33.7 H, MCHC 33.3, RDW 13.5, Plt Count 215, MPV 8.3, Neut % (Auto) 75.1, Lymph % (Auto) 15.3, [place] % (Auto) 9.0, Eos % (Auto) 0.4, Baso % (Auto) 0.2, Neut # (Auto) 9.4 H, Lymph # (Auto) 1.9, [place] # (Auto) 1.1 H, Eos # (Auto) 0.1, Baso # (Auto) 0.0 09/08/19 06:35: Sodium 137, Potassium 4.9, Chloride 106, Carbon Dioxide 26, Anion Gap 9.9, BUN 21 H D, Creatinine 1.00 D, Estimated Creat Clear 72, Estimated GFR 76, Est GFR ( Amer) 93 D, Glucose 150 H, Calcium 8.1 L, Troponin I 0.20 H Medical History: Reports:: Chronic Obstructive Pulmonary Disease (COPD), Diabetes Mellitus Type 2, Hyperlipidemia, Hypertension Denies:: Cancer, Diabetes Mellitus Type 1, MRSA Assessment and Plan (1) Pneumonia Current visit: Yes Status: Acute Qualifiers: Pneumonia type: due to unspecified organism Laterality: bilateral Lung location: unspecified part of lung Qualified Code(s): J18.9 - Pneumonia, unspecified organism Category: Medical Code(s): J18.9 - Pneumonia, unspecified organism (2) Renal failure Current visit: Yes Status: Acute Qualifiers: Renal failure chronicity: acute Acute renal failure type: unspecified Qualified Code(s): N17.9 - Acute kidney failure, unspecified Category: Medical Code(s): N19 - Unspecified kidney failure (3) Sepsis Current visit: Yes Status: Resolved Qualifiers: Sepsis type: sepsis due to unspecified organism Sepsis acute organ dysfunction status: with acute organ dysfunction Severe sepsis acute organ dysfunction type: critical illness polyneuropathy Severe sepsis shock status: without septic shock Qualified Code(s): A41.9 - Sepsis, unspecified organism; R65.20 -
--- NOTE | 2019-09-08 11:39 | HMH.PTEV ---
Physical Therapy Evaluation Rehab PT IP Evaluation Start: 09/08/19 07:37 Freq: ONCE Status: Active Protocol: Document 09/08/19 11:35 PHORNE (Rec: 09/08/19 11:39 PHORNE [id number]) Subjective/History History History 58 yowm adm to [facility] with CAP and sepsis with general weakness. He reports he lives alone, walks with a cane, 3 steps to enter the home. Subjective Subjective C/o R foot with increased numbness resulting in difficulty ambulating. Rehab PT IP Eval Objective Appearance Patient Behavior Appropriate Patient Orientation Person,Place,Time Difficulty following instructions none Speech Pattern Clear Ambulation Patient Able to Ambulate Yes Ambulation Observation IP General Gait Pattern Observation Wide Based Gait,Decrease Weight Bear (R) Ambulation Distance (feet) 3 Ambulation Assistive Device None Ambulation Ability Moderate x 1 (50% assist) Balance Ability to Arise Able, uses arms to help Sitting Balance Steady, safe Standing Balance Steady, wide stance Dynamic Sitting Balance Ability Good Dynamic Standing Balance Ability Poor Transfers Bed Transfer Ability Contact Guard/Hand Hold Chair Transfer Ability Minimal x 1 (25% assist) Sit to Stand Bed Transfer Ability Minimal x 1 (25% assist) Sit to Stand Chair Transfer Ability Minimal x 1 (25% assist) ROM All Extremities PT ROM Status WFL MMT All Extremities PT MMT WFL Rehab PT IP prob,goals,plan Problems Date of Evaluation: 09/08/19 PT IP Problems Transfers,Gait Rehab Potential Rehab Potential Good Plan PT Intervention Plan Bed Mobility,Transfers,Gait, Therapeutic Exercise PT Plan Frequency BID Duration LOS Discharge Goals Bed Transfer Ability Supervision/Stand by Sit to Stand Chair Transfer Ability Contact Guard/Hand Hold Ambulation Assistive Device Rolling Walker Ambulation Distance (feet) 15 Discharge Plan PT Discharge Plan Pt is currently most appropriate for rehab placement once medically stable, but this could change as his endurance and strength improve. G -code Required No Eval Complexity Eval Charge Codes 26317 - Moderate Complexity
[2019-09-08 12:06] LABS: POC Glucose,Bedside 160 (70-110)
--- NOTE | 2019-09-08 17:11 | PC.NURSE ---
PT HAS HAD A GOOD DAY TODAY. HAS WALKED WITH A WALKER AND STAFF TO BATHROOM, TOLERATES WELL. STILL CONT. TO HAVE MULTIPLE, SOFT STOOLS. HE IS ON ROOM AIR CURRENTLY, TOLERATING WELL. HAS SAT UP IN THE CHAIR FOR MAJORITY OF THE SHIFT. VSS. WILL CONT. TO MONITOR.
[2019-09-08 17:22] LABS: POC Glucose,Bedside 149 (70-110)
[2019-09-08 21:04] LABS: POC Glucose,Bedside 158 (70-110)
[2019-09-09] VITALS (10 sets, daily range): BP systolic 117–154; BP diastolic 57–87; PULSE 72–89; RESP 16–20; TEMP 36.5–37.1; O2SAT 92–97; BMI 47.4
--- NOTE | 2019-09-09 03:22 | PC.NURSE ---
Pt is A&Ox4 and has ambulated to the Bathroom with wheelchair and staff SBA 4x this shift and tolerated well. Pt has continued on room air t/o shift with sats 94-96%. Pt denies any SOA or dyspnea. Scattered wheezing noted on lung auscultation, pt received scheduled inhaler by RT with good results. Pt has continued utilizing IS and surpassing goal to reach 1500ml, goal readjusted. TEDS removed per Pt request d/t pain in BLE from TEDS. Call light within reach, will continue to monitor.
[2019-09-09 06:09] LABS: POC Glucose,Bedside 139 (70-110)
[2019-09-09 06:44] LABS: Basophils % 0.1 % (0.1-2.0); Eosinophils # 0.1 K/mm3 (0.0-0.4); Eosinophils % 1.2 % (0.1-12.0); Hematocrit 40.8 % (42.0-52.0); Lymphocytes # 2.1 K/mm3 (0.7-4.5); Lymphocytes % 22.2 % (10-50); Mean Corpuscular HGB Conc 34.2 g/dL (31.8-35.4); Mean Corpuscular Hemoglobin 33.5 pg (27.0-31.2); Mean Corpuscular Volume 97.9 fl (80-94); Mean Platelet Volume 8.2 fl (7.4-10.4); Monocytes # 0.8 K/mm3 (0.1-1.0); Monocytes % 8.3 % (1.7-9.3); Neutrophils # 6.5 K/mm3 (1.8-7.8); Neutrophils % 68.1 % (37.0-80.0); Platelet Count 208 K/mm3 (142-424); Red Blood Count 4.17 M/mm3 (4.60-6.20); Red Cell Distribution Width 13.4 % (11.5-17.5); White Blood Count 9.5 K/mm3 (4.8-10.8)
[2019-09-09 07:04] LABS: Chloride 106 mmol/L (98-107); Sodium 134 mmol/L (136-145)
[2019-09-09 07:05] LABS: Potassium 4.8 mmoL/L (3.5-5.1)
[2019-09-09 07:07] LABS: Blood Urea Nitrogen 15 mg/dl (9-20); Creatinine Clearance Estimated 90 mL/min (50-200); Estimated Glomerular Filt Rate 99 ml/min (>60); GFR (African American) 120 ML/MIN (>60)
[2019-09-09 07:08] LABS: Anion Gap 7.8 mEq/L (5-15); Calcium 7.9 mg/dl (8.4-10.2); Carbon Dioxide 25 mmol/L (22.0-30.0); Glucose 144 mg/dl (74-100)
--- NOTE | 2019-09-09 07:20 | HMH.ACPN2 ---
Internal Medicine - PN: Subj *Date: 09/09/19 *Time: 07:20 Interval history: Patient has no complaints this morning. He feels like sensation is beginning returned to the soles of his feet. He is ambulating a little bit better. He still having frequent diarrhea and I discontinued his azithromycin yesterday evening because of the frequency of diarrhea and a negative diarrhea panel. Exam Vital signs and Labs for Last 24 Hours: Temp Pulse Resp BP Pulse Ox 97.8 F 82 18 154/68 H 93 L 09/09/19 04:00 09/09/19 04:00 09/09/19 04:00 09/09/19 04:00 09/09/19 06:10 Laboratory Results - last 24 hr 09/08/19 06:35: Sodium 137, Potassium 4.9, Chloride 106, Carbon Dioxide 26, Anion Gap 9.9, BUN 21 H D, Creatinine 1.00 D, Estimated Creat Clear 72, Estimated GFR 76, Est GFR ( Amer) 93 D, Glucose 150 H, Calcium 8.1 L, Troponin I 0.20 H 09/08/19 11:58: POC Glucose 160 H 09/08/19 17:14: POC Glucose 149 H 09/08/19 20:51: POC Glucose 158 H 09/09/19 05:51: POC Glucose 139 H 09/09/19 06:05: WBC 9.5, RBC 4.17 L, Hgb 14.0 L, Hct 40.8 L, MCV 97.9 H, MCH 33.5 H, MCHC 34.2, RDW 13.4, Plt Count 208, MPV 8.2, Neut % (Auto) 68.1, Lymph % (Auto) 22.2, [place] % (Auto) 8.3, Eos % (Auto) 1.2, Baso % (Auto) 0.1, Neut # (Auto) 6.5, Lymph # (Auto) 2.1, [place] # (Auto) 0.8, Eos # (Auto) 0.1, Baso # (Auto) 0.0 09/09/19 06:05: Sodium 134 L, Potassium 4.8, Chloride 106, Carbon Dioxide 25, Anion Gap 7.8, BUN 15 D, Creatinine 0.80, Estimated Creat Clear 90, Estimated GFR 99, Est GFR ( Amer) 120 D, Glucose 144 H, Calcium 7.9 L I & O for Last 24 hours: Intake & Output 09/06/19 09/07/19 09/08/19 09/09/19 11:59 11:59 11:59 11:59 Intake Total 4652 / 4652 6303 / 6303 1090 / 1090 Output Total 1276 / 1276 5475 / 5475 1700 / 1700 Balance 3376 / 3376 828 / 828 -610 / -610 Weight 298 lb 2 oz 294 lb 2 oz 295 lb 4 oz Microbiology Reports for the Last 24 Hours: Microbiology 09/06/19 18:36 Blood Blood Culture - Preliminary NO GROWTH AFTER 48 HOURS 09/06/19 18:36 Blood Blood Culture - Preliminary 09/07/19 06:48 Sputum - Expectorated Sputum Gram Stain - Final 09/07/19 06:48 Sputum - Expectorated Sputum Sputum Culture - Preliminary Narrative: Patient is in no distress. He sitting up in the chair eating breakfast. Overall patient looks better than yesterday. Lung exam reveals improved aeration but persistent although faint or rhonchi today than yesterday. Heart has a regular rate and rhythm. Abdomen is obese. Assessment and Plan (1) Pneumonia Current visit: Yes Status: Acute Qualifiers: Pneumonia type: due to unspecified organism Laterality: bilateral Lung location: unspecified part of lung Qualified Code(s): J18.9 - Pneumonia, unspecified organism Category: Medical Code(s): J18.9 - Pneumonia, unspecified organism (2) Renal failure Current visit: Yes Status: Acute Qualifiers: Renal failure chronicity: acute Acute renal failure type: unspecified Qualified Code(s): N17.9 - Acute kidney failure, unspecified Category: Medical Code(s): N19 - Unspecified kidney failure (3) Sepsis Current visit: Yes Status: Resolved Qualifiers: Sepsis type: sepsis due to unspecified organism Sepsis acute organ dysfunction status: with acute organ dysfunction Severe sepsis acute organ dysfunction type: critical illness polyneuropathy Severe sepsis shock status: without septic shock Qualified Code(s): A41.9 - Sepsis, unspecified organism; R65.20 - Severe sepsis without septic shock; G62.81 - Critical illness polyneuropathy Category: Medical Code(s): A41.9 - Sepsis, unspecified organism (4) Diabetes mellitus with hyperglycemia Current visit: Yes Status: Acute Category: Medical Code(s): E11.65 - Type 2 diabetes mellitus with hyperglycemia (5) Elevated troponin Current visit: Yes Status: Acute Category: Medical Code(s): R79.89 - Other specif
[2019-09-09 11:43] LABS: POC Glucose,Bedside 135 (70-110)
[2019-09-09 16:22] LABS: POC Glucose,Bedside 154 (70-110)
--- NOTE | 2019-09-09 17:27 | PC.NURSE ---
PATIENT A&O X4, LUNGS DIMINISHED AT BASES, INSPIRATORY AND EXPIRATORY WHEEZES IN MIDDLE AND UPPER BILATERAL LOBES. PATIENT UP TO CHAIR DURING THIS RN SHIFT. PATIENT BEGAN STOMACH CRAMPS AFTER FIRST ADMINISTRATION OF IMMODIUM. THIS RN NOTIFIED DR. RANDHAWA AND ORDERS RECEIVED TO STOP MEDICATION. PATIENT HAD 4 EPISODES OF DIARRHEA DURING THIS RN SHIFT. NO OTHER NEEDS OR CONCERNS AT THIS TIME.
--- NOTE | 2019-09-09 19:10 | PC.NURSE ---
report given to myah
--- NOTE | 2019-09-09 20:44 | PC.NURSE ---
Pt's room air sat at rest = 93%.
[2019-09-09 23:28] LABS: POC Glucose,Bedside 117 (70-110)
[2019-09-10] VITALS (9 sets, daily range): BP systolic 138–153; BP diastolic 68–88; PULSE 69–88; RESP 17–20; TEMP 36.4–36.7; O2SAT 88–96; BMI 47.4
--- NOTE | 2019-09-10 05:37 | PC.NURSE ---
Pt is A&Ox4 and has ambulated with x1 staff SBA and walker several times this shift, pt tolerated well. Pt has denied any pain, SOA, or n/v this shift. Pt has has a frequent small BM, soft to chandrika like in consistency. Pt has had no further c/o ABD cramping. BS hyperactive x4 quads, soft and non-tender. Scattered rhochi and mild wheezing noted on lung auscultation, wheezing improved post inhaler use. Pt has continued on room air t/o shift with sats 92-96%. Pt does c/o of feeling flushed and sweating profusely around [id number] every night, with the worst episode at the beginning of this shift. Pt did not appear flushed, afebrile, RR even and unlabored, HR regular rate and rhythm. Pt's gown and sheets were changed, room temp and fan adjusted, and pt hair was dried. Shortly after these interventions pt remained dry. VSS, call light within reach and will continue to monitor.
[2019-09-10 07:01] LABS: POC Glucose,Bedside 143 (70-110)
--- NOTE | 2019-09-10 07:31 | HMH.ACPN2 ---
Internal Medicine - PN: Subj *Date: 09/10/19 *Time: 07:31 Interval history: Patient has no new complaints this morning. He admits he slept well. He feels like he is getting around better but he continues to have numbness on the bottom of his feet which he feels like has an effect on his ability to ambulate. He denies shortness of breath Exam Vital signs and Labs for Last 24 Hours: Temp Pulse Resp BP Pulse Ox 97.5 F L 86 18 149/68 H 92 L 09/10/19 07:30 09/10/19 07:30 09/10/19 07:30 09/10/19 07:30 09/10/19 07:30 Laboratory Results - last 24 hr 09/09/19 11:28: POC Glucose 135 H 09/09/19 15:57: POC Glucose 154 H 09/09/19 21:58: POC Glucose 117 H 09/10/19 06:47: POC Glucose 143 H I & O for Last 24 hours: Intake & Output 09/07/19 09/08/19 09/09/19 09/10/19 11:59 11:59 11:59 11:59 Intake Total 4652 / 4652 6303 / 6303 1570 / 1570 1979 / 1979 Output Total 1276 / 1276 5475 / 5475 1700 / 1700 1750 / 1750 Balance 3376 / 3376 828 / 828 -130 / -130 230 / 230 Weight 298 lb 2 oz 294 lb 2 oz 295 lb 4 oz 295 lb 3.995 oz Microbiology Reports for the Last 24 Hours: Microbiology 09/06/19 18:36 Blood Blood Culture - Preliminary Staphylococcus epidermidis 09/07/19 06:48 Sputum - Expectorated Sputum Gram Stain - Final 09/07/19 06:48 Sputum - Expectorated Sputum Sputum Culture - Preliminary Narrative: Patient looks comfortable. He is sitting up in bed without supplemental oxygen on. Lungs have improved aeration but continued to have rhonchi at the bases. Heart has a regular rate and rhythm and abdomen is soft and nontender. Patient did ambulate with a walker in the room Assessment and Plan (1) Pneumonia Current visit: Yes Status: Acute Qualifiers: Pneumonia type: due to unspecified organism Laterality: bilateral Lung location: unspecified part of lung Qualified Code(s): J18.9 - Pneumonia, unspecified organism Category: Medical Code(s): J18.9 - Pneumonia, unspecified organism (2) Renal failure Current visit: Yes Status: Acute Qualifiers: Renal failure chronicity: acute Acute renal failure type: unspecified Qualified Code(s): N17.9 - Acute kidney failure, unspecified Category: Medical Code(s): N19 - Unspecified kidney failure (3) Sepsis Current visit: Yes Status: Resolved Qualifiers: Sepsis type: sepsis due to unspecified organism Sepsis acute organ dysfunction status: with acute organ dysfunction Severe sepsis acute organ dysfunction type: critical illness polyneuropathy Severe sepsis shock status: without septic shock Qualified Code(s): A41.9 - Sepsis, unspecified organism; R65.20 - Severe sepsis without septic shock; G62.81 - Critical illness polyneuropathy Category: Medical Code(s): A41.9 - Sepsis, unspecified organism (4) Diabetes mellitus with hyperglycemia Current visit: Yes Status: Acute Category: Medical Code(s): E11.65 - Type 2 diabetes mellitus with hyperglycemia (5) Elevated troponin Current visit: Yes Status: Acute Category: Medical Code(s): R79.89 - Other specified abnormal findings of blood chemistry (6) COPD (chronic obstructive pulmonary disease) Current visit: Yes Status: Acute Qualifiers: COPD type: COPD with acute exacerbation Qualified Code(s): J44.1 - Chronic obstructive pulmonary disease with (acute) exacerbation Category: Medical Code(s): J44.9 - Chronic obstructive pulmonary disease, unspecified (7) Hyperkalemia Current visit: Yes Status: Acute Category: Medical Code(s): E87.5 - Hyperkalemia - Assessment and plan all Dx Assessment and Plan for all problems:: 1. Patient will transition to oral antibiotics at discharge. positive blood culture of staph epidermidis is considered a contaminant. Vancomycin can be discontinued 2. Patient was started on a probiotic yesterday for his diarrhea after he developed cramping from chanda
--- NOTE | 2019-09-10 08:57 | HMH.ACPN ---
Internal Medicine - PN: Subj *Date: 09/10/19 *Time: 08:57 Exam Vital signs and Labs for Last 24 Hours: Temp Pulse Resp BP Pulse Ox 97.5 F L 86 18 149/68 H 92 L 09/10/19 07:30 09/10/19 07:30 09/10/19 07:30 09/10/19 07:30 09/10/19 07:30 Laboratory Results - last 24 hr 09/09/19 11:28: POC Glucose 135 H 09/09/19 15:57: POC Glucose 154 H 09/09/19 21:58: POC Glucose 117 H 09/10/19 06:47: POC Glucose 143 H I & O for Last 24 hours: Intake & Output 09/07/19 09/08/19 09/09/19 09/10/19 23:59 23:59 23:59 23:59 Intake Total 5282 / 5282 4513 / 4513 1490 / 2100 970 / 970 Output Total 4825 / 5200 2525 / 2525 2300 / 2475 550 / 550 Balance 457 / 82 1988 / 1987 -810 / -375 420 / 420 Weight 135 kg 133.413 kg 133.923 kg 133.923 kg Microbiology Reports for the Last 24 Hours: Microbiology 09/07/19 06:48 Sputum - Expectorated Sputum Gram Stain - Final 09/07/19 06:48 Sputum - Expectorated Sputum Sputum Culture - Preliminary 09/06/19 18:36 Blood Blood Culture - Preliminary Staphylococcus epidermidis Assessment and Plan (1) Pneumonia Current visit: Yes Status: Acute Qualifiers: Pneumonia type: due to unspecified organism Laterality: bilateral Lung location: unspecified part of lung Qualified Code(s): J18.9 - Pneumonia, unspecified organism Category: Medical Code(s): J18.9 - Pneumonia, unspecified organism (2) Renal failure Current visit: Yes Status: Acute Qualifiers: Renal failure chronicity: acute Acute renal failure type: unspecified Qualified Code(s): N17.9 - Acute kidney failure, unspecified Category: Medical Code(s): N19 - Unspecified kidney failure (3) Sepsis Current visit: Yes Status: Resolved Qualifiers: Sepsis type: sepsis due to unspecified organism Sepsis acute organ dysfunction status: with acute organ dysfunction Severe sepsis acute organ dysfunction type: critical illness polyneuropathy Severe sepsis shock status: without septic shock Qualified Code(s): A41.9 - Sepsis, unspecified organism; R65.20 - Severe sepsis without septic shock; G62.81 - Critical illness polyneuropathy Category: Medical Code(s): A41.9 - Sepsis, unspecified organism (4) Diabetes mellitus with hyperglycemia Current visit: Yes Status: Acute Category: Medical Code(s): E11.65 - Type 2 diabetes mellitus with hyperglycemia (5) Elevated troponin Current visit: Yes Status: Acute Category: Medical Code(s): R79.89 - Other specified abnormal findings of blood chemistry (6) COPD (chronic obstructive pulmonary disease) Current visit: Yes Status: Acute Qualifiers: COPD type: COPD with acute exacerbation Qualified Code(s): J44.1 - Chronic obstructive pulmonary disease with (acute) exacerbation Category: Medical Code(s): J44.9 - Chronic obstructive pulmonary disease, unspecified (7) Hyperkalemia Current visit: Yes Status: Acute Category: Medical Code(s): E87.5 - Hyperkalemia The patient's infection will respond to the chosen ABx?: Yes Is the patient receiving the right drug, dose, and route?: Yes Could a more targeted ABx be ordered?: No (wbc wnl, afebrile)
[2019-09-10 10:46] LABS: POC Glucose,Bedside 138 (70-110)
--- NOTE | 2019-09-10 14:16 | SW/DCPLANNER ---
Addendum entered by Palma Aranda 09/11/19 09:10: I have faxed discharge summary to [facility]. Services will begin Saturday for this patient. Patient has discharged home. Original Note: WENT IN TO SEE PATIENT ABOUT HIS DISCHARGE PLANS: PATIENT REQUESTED HOME HEALTH FOR PHYSICAL THERAPY AFTER HE DISCHARGES HOME.. PATIENT HAS REQUESTED [facility] AND EVEN THOUGH HE ISN'T DISCHARGING HOME TODAY AND I WENT ON TO SET IT UP AND SPOKE WITH CHRISTOPHER AT [facility]... HE WILL START SERVICES ON SATURDAY AND HE WILL BE CONTACTED..
[2019-09-10 15:56] LABS: POC Glucose,Bedside 106 (70-110)
[2019-09-10 16:47] LABS: Vancomycin,Trough 9.9 ug/mL (5.0-10.0)
--- NOTE | 2019-09-10 20:39 | PC.NURSE ---
Pt's room air O2 sat at rest = 93%.
[2019-09-11] VITALS: BP 140/65; PULSE 76; RESP 20; TEMP 36.8; O2SAT 92
[2019-09-11 04:00] VITALS: BP 148/90; PULSE 77; RESP 16; TEMP 36.5; O2SAT 94
--- NOTE | 2019-09-11 04:14 | PC.NURSE ---
Pt A&Ox4. Pt on RA this shift no complaints of pain. No loose stools this shift but has pass large amount of gas. Pt ambulated independently with walker in room and to BR. Pt anxious to go home this AM. Pt has used IS several times this shift reaching his goal of 1500. Pt has rested well this shift.
[2019-09-11 05:00] VITALS: BMI 47.4
--- NOTE | 2019-09-11 07:18 | HMH.DCSUM ---
General - General Admission date:: 09/06/19 Discharge date: 09/11/19 HPI HPI: 58-year-old male with diabetes, hypertension, severe COPD presented to the emergency department after he contacted his son because he felt weak and ill at home. Patient had had a normal Saturday and had even attended a family get together. On Saturday he became so weak he could not ambulate on his own and was crawling around his house. He does not really recall specifics of the day. He felt so ill he contacted his son. His son came to his house and saw the shape his father was in and called EMS and patient was brought to the emergency department. In the ER patient was diagnosed as septic with source of infection being pneumonia found on chest CT. Patient was negative for COVID 19. He was admitted for IV fluids, IV antibiotics. Patient has COPD but denies any significant shortness of breath above baseline or cough with purulent sputum production. He is unaware if he has had fevers at home. Hospital Course Hospital Course: Patient was admitted for treatment of pneumonia and sepsis. COVID 19 was ruled out. Patient was started on Rocephin and azithromycin. With in 36 hours of admission sputum culture and at least one blood culture were suggestive of possible MRSA. Vancomycin was added to the patient's antibiotic regimen. Patient developed watery frequent diarrhea which was attributed to antibiotics after gastrointestinal infection was ruled out with a diarrhea panel. Ultimately azithromycin was stopped and diarrhea resolved within 24 hours. Patient was then continued on Rocephin and vancomycin until it became apparent that his sputum culture was not growing any organism and his blood culture that was positive was a contaminant. At this point he was transitioned to Rocephin only. Initially patient had oxygen requirement of 2 L to keep his O2 sats above 90%. As hospitalization progressed he was weaned from supplemental oxygen. On the day of discharge patient was on room air and maintaining sats in the low to mid 90s without symptoms of shortness of breath. Cough had significantly improved. Sputum production had also slowed significantly. Patient has diabetes with peripheral neuropathy. While hospitalized his blood sugars remained under very good control with a diabetic diet. Metformin was held on admission due to acute kidney injury. Metformin was restarted the day prior to discharge. Patient's home medications will be restarted at discharge. He will check his blood sugars twice daily. Patient had acute kidney injury with hyperkalemia on admission. There were no EKG changes due to hyperkalemia. Patient was given calcium gluconate on presentation in the emergency department as well as insulin and albuterol aerosols. Patient received sepsis fluid bolus on presentation and was continued on IV fluids and over 48 hours had resolution of the hyperkalemia and within 72 hours return of normal renal function. Patient had an elevated troponin on admission. It was suspected this was due to demand ischemia from his hypoxia and pneumonia. Echocardiogram was performed and showed normal ejection fraction. Patient is a longtime smoker and was given nicotine patches 1-2 times per day to aid with nicotine withdrawal. Patient's level of illness seemingly exacerbated his peripheral neuropathy and the patient frequently complained of inability to feel his legs on admission. Despite this complaint patient was witnessed multiple times moving his extremities and sensation was intact. Upon further questioning the patient clarified that the sensation on the soles of his feet felt different than it had prior to admission. Patient felt like he was going to have some difficulty ambulating. After patient was showing signs of improvement PT evaluated the patient. He was able to ambulate with a walker. PT worked with the patient daily and he showed improvement in ambulatory function
[2019-09-11 08:00] VITALS: BP 136/88; PULSE 85; RESP 20; TEMP 36.6; O2SAT 92
--- NOTE | 2019-09-11 11:05 | HMH.PHAINT ---
DISCHARGE COUNSELING COMPLETED.
== END 2019-09-11 08:50 | disposition home health service (06) | DRG 193 ==
LOC: ER 22:44 → 2ND 22:51
PROVIDERS: Admitting Provider Internal Medicine Adolescent Medicine; Emergency Provider Emergency Medicine; PCP Family Medicine; Visit Provider Family Medicine
DX: J18.9 Pneumonia, unspecified organism (principal); R65.20 Severe sepsis without septic shock; G62.81 Critical illness polyneuropathy; J44.1 Chronic obstructive pulmonary disease with (acute) exacerbation; N17.9 Acute kidney failure, unspecified; Z79.84 Long term (current) use of oral hypoglycemic drugs; I10 Essential (primary) hypertension; Z72.0 Tobacco use; E11.65 Type 2 diabetes mellitus with hyperglycemia; E87.5 Hyperkalemia; Z79.899 Other long term (current) drug therapy; E11.42 Type 2 diabetes mellitus with diabetic polyneuropathy
CPT/HCPCS: 36415; 70450; 71045; 71250; 74176; 80048; 80053; 80202; 82962; 83605; 83735; 84100; 84484; 85007; 85025; 86328; 87040; 87070; 87077; 87186; 87205; 87507; 87581; 87633; 87798; 93005; 93306; 94640; 94761; 96365; 96366; 96367; 96375; 97116; 97162; 97530; 99285; J0456; J2405; J3370

== ENCOUNTER 2024-09-01 08:07 | Day surgery (SDC) | payer MEDICARE, SELFPAY ==
[2024-09-01 08:34] VITALS: BMI 44.4
[2024-09-01] MEDS: LACTATED RINGERS 1000ML 1,000 ML 50 ML IV (08:36)
[2024-09-01 08:41] VITALS: BP 146/78; PULSE 88; RESP 18; TEMP 36.4; O2SAT 92
[2024-09-01 08:47] LABS: POC Glucose,Bedside 130 (70-110)
--- NOTE | 2024-09-01 08:54 | EXP.ANES.CKL ---
[facility] Disclaimer: The information contained in this section may have been updated after the patient was seen, as this information can be updated by other users. Medical History Irregular heartbeat Legally blind COPD (chronic obstructive pulmonary disease) Surgical History History of surgical procedure on eye proper using laser History of hip surgery H/O Spinal surgery Family History Other No significant family history Social History Smoking Status: Current every day smoker tobacco type: cigarettes packs per day: 2 alcohol intake: never substance use type: former substance user, marijuana, heroin and painkillers current occupational status: disabled Travel in the last 8 weeks?: None household members: none housing: apartment caffeine: No Have you lived/traveled outside [place] in past 30 days?: No Contact w/someone who lives/traveled outside [place] past 30 days?: No Exposure to someone with infectious disease in past 14 days?: No Do you have a fever (greater than 100.4 F or 38 C)?: No Have you tested positive for COVID-19?: No Exposed to someone with COVID-19 in past 14 days?: No Do you have a sore throat?: No Do you have a cough?: No Do you have any weakness?: No Do you have any diarrhea?: No Are you experiencing any unusual bleeding?: No Do you have any muscle aches/pain?: No Do you have any abdominal pain?: No Are you experiencing loss of taste or smell?: No [facility] Anesthesia Checklist Patient Identification Patient Identification: Arm Band Structural Data Admitted From: Home Planned Operative Procedure/s: Colonoscopy Consent for Planned Operative Procedure(s) Verified: Yes Verified Documents: Surgical Consent and History and Physical NPO Status Verified Time NPO: 00:00 Additional verifications Anesthesia Reactions: No Airway Assessment Mallampati Score:: Class II C-Spine Mobility Assessed: Yes TMJ Mobility Assessed: Yes Dentition: Good Dentition Neurological Assessment Level of Consciousness: Awake, Alert and Appropriate Anesthesia Plan Anesthesia Risk discussed: Yes Anesthesia Plan: Verified ASA Class: III Anesthesia Type: MAC
--- NOTE | 2024-09-01 09:10 | EXP.GEN.HP ---
HPI HPI HPI: This is a 63-year-old gentleman who presents for colonoscopy. He has never undergone colonoscopy. He reports a recent Cologuard study was positive. [facility] Disclaimer: The information contained in this section may have been updated after the patient was seen, as this information can be updated by other users. Medical History (Updated 09/01/24 @ 09:10 by Dameon Craft MD) Irregular heartbeat Legally blind COPD (chronic obstructive pulmonary disease) Surgical History History of surgical procedure on eye proper using laser History of hip surgery H/O Spinal surgery Family History No significant family history Social History Smoking Status: Current every day smoker tobacco type: cigarettes packs per day: 2 alcohol intake: never substance use type: former substance user, marijuana, heroin and painkillers current occupational status: disabled Travel in the last 8 weeks?: None household members: none housing: apartment caffeine: No Have you lived/traveled outside [place] in past 30 days?: No Contact w/someone who lives/traveled outside [place] past 30 days?: No Exposure to someone with infectious disease in past 14 days?: No Do you have a fever (greater than 100.4 F or 38 C)?: No Have you tested positive for COVID-19?: No Exposed to someone with COVID-19 in past 14 days?: No Do you have a sore throat?: No Do you have a cough?: No Do you have any weakness?: No Do you have any diarrhea?: No Are you experiencing any unusual bleeding?: No Do you have any muscle aches/pain?: No Do you have any abdominal pain?: No Are you experiencing loss of taste or smell?: No Other Medical History Have you received the Flu Vaccine for this season: No Have you received the Pneumonia Vaccine: No Review of Systems Review of Systems Review of systems:: pertinent systems reviewed and negative unless documented below Meds Home Medications and Allergies Home Medications ?Medication ?Instructions ?Recorded ?Confirmed ?Type atorvastatin 10 mg tablet 10 mg PO DAILY 08/31/24 09/01/24 History fluticasone fur. 100 mcg-umeclid 25 ea inhalation DAILY 08/31/24 09/01/24 History 62.5 mcg-vilant 25 mcg inhalat.powder (Trelegy Ellipta) gabapentin 600 mg tablet 600 mg PO TID 08/31/24 09/01/24 History glimepiride 2 mg tablet 2 mg PO DAILY 08/31/24 09/01/24 History lisinopril 40 mg tablet 40 mg PO DAILY 08/31/24 09/01/24 History metformin 500 mg tablet,extended 500 mg PO DAILY 08/31/24 09/01/24 History release 24 hr pioglitazone 30 mg tablet 30 mg PO DAILY 08/31/24 09/01/24 History New Prescriptions to Start Prescriptions: Allergies Allergy/AdvReac Type Severity Reaction Status Date / Time bee venom protein (honey bee) Allergy Swelling Verified 09/01/24 08:37 of Lip/Tongue/Throat Exam Data for Last 24 hours Vital signs and Labs for Last 24 Hours: Temp Pulse Resp BP Pulse Ox O2 Del Method 97.6 F 88 18 146/78 H 92 L Room Air 09/01/24 08:41 09/01/24 08:41 09/01/24 08:41 09/01/24 08:41 09/01/24 08:41 09/01/24 08:41 Laboratory Results - last 24 hr 09/01/24 08:38: POC Glucose 130 H I & O for Last 24 hours: Intake & Output 08/29/24 08/30/24 08/31/24 09/01/24 11:59 11:59 11:59 11:59 Weight 275 lb Constitutional Constitutional: no acute distress *Routine HEENT Exam Head: Present normocephalic Eye: Present EOMI ENT: Present mucous membranes moist *Routine Neck Exam Neck: Present full ROM *Routine Respiratory Exam Respiratory: Absent respiratory distress *Routine Cardiovascular Exam Cardiovascular: Absent tachycardia *Routine Abdominal Exam Abdominal: Present soft *Routine Rectal Exam Rectal:: deferred *Routine Genitalia Exam Genitalia:: deferred *Routine Extremities Exam Extremities: Present full ROM *Routine Skin Exam Skin: Absent erythema *Routine Neurological Exam Neurological: Present alert Results Results Lab Results Last 24 Hours:: Laboratory Results - last 24 hr 09/01/24 08:38: POC Glucose 130 H Assessment and Plan *Assessment and plan (1) Positive colorectal cancer screening using Cologuard test: Status: Acute Category: Medical Code(s): R19.5 - Other fecal abnormalities Plan: Colonoscopy today I have discussed the risks and benefits including, but not limited to: Bleeding Infection Damage to surrounding tissue Inherent risks of sedation The patient agrees to proceed.
--- NOTE | 2024-09-01 09:57 | HMH.SCOPE ---
Procedure: Date: 09/01/24 Patient Date of :: 1960 Procedure Performed:: Colonoscopy with polypectomy Indications:: Positive Cologuard Performing Provider:: Dameon Craft MD Referring Provider:: Dr. Shaw Sedation:: Monitored anesthesia care Procedure:: After informed consent was obtained the patient was taken to the endoscopy suite. Sedation ensued after the patient was transferred to the left lateral decubitus position. Pulse, blood pressure, and oxygen saturation were monitored throughout the procedure. Digital rectal exam revealed no significant abnormality. The colonoscope was placed in position. The entire colon was evaluated. The colonoscope was carefully removed and the patient was transferred to recovery in stable condition. Please see findings and specimens below for detail. Findings:: Bowel preparation poor Profound spasticity/lack of relaxation Lobulated sessile proximal right colon polyp not retrieved secondary to bowel preparation, spasticity, and lack of relaxation. Additional complex polyps (see specimens) Specimens:: Transverse colon polyp (cold snare) Large complex pedunculated polyp at 25 cm (hot snare) Recommendations:: Timing of repeat colonoscopy is pending pathology but will likely be around 6-12 months with extended/alternate bowel preparation. Consider gastroenterology consultation secondary to likely chronic constipation. If gastroenterology consultation completed the patient's next colonoscopy will be deferred to their service. Complications:: No immediate with the exception of limited visualization secondary to poor preparation, spasticity, and lack of relaxation. Estimated blood obtained (mL): 1 Colonoscopy Component Colonoscopy Component Was a colonoscopy performed during today's procedure?: Yes Recommended follow up colonoscopy of at least 10 years?: No If no, follow up colonoscopy recommended in ___ years?: (See above) Reason for not recommending >/= 10 yr follow-up interval?: (See above)
[2024-09-01 10:04] VITALS: BP 117/79; PULSE 92; RESP 16; TEMP 36.4; O2SAT 93
[2024-09-01 10:14] VITALS: BP 148/79; PULSE 86; RESP 16; O2SAT 94
[2024-09-01 10:24] VITALS: BP 132/70; PULSE 80; RESP 16; O2SAT 95
[2024-09-01 10:34] VITALS: BP 131/74; PULSE 82; RESP 16; O2SAT 95
== END 2024-09-01 10:36 | disposition home or self-care (01) ==
PROVIDERS: PCP Family Medicine; Visit Provider Surgery
PROC: 0DJD8ZZ Inspection of Lower Intestinal Tract, Via Natural or Artificial Opening Endoscopic (ICD-10-PCS; CPT 45385; principal; 2024-09-01 09:15)
DX: Z12.11 Encounter for screening for malignant neoplasm of colon (principal); K63.5 Polyp of colon; D12.3 Benign neoplasm of transverse colon; K59.09 Other constipation; J44.9 Chronic obstructive pulmonary disease, unspecified; H54.8 Legal blindness, as defined in USA; E11.65 Type 2 diabetes mellitus with hyperglycemia; F17.210 Nicotine dependence, cigarettes, uncomplicated; Z79.84 Long term (current) use of oral hypoglycemic drugs; Z79.899 Other long term (current) drug therapy; Z91.030 Bee allergy status; Z79.51 Long term (current) use of inhaled steroids
CPT/HCPCS: 45385; 82962; 88305; J2003; J2704; J7120